=== PATIENT | female | born 1955 | race Caucasian/White ===

== ENCOUNTER 2016-09-19 20:29 | Emergency (ER) | payer SELFPAY ==
[~2016-09-19] VITALS: Ht 160 cm; Wt 109.1 kg
[2016-09-19 20:46] LABS: GLUCOSE,POINT OF CARE 159 MG/DL (70-110)
[2016-09-19] MEDS ORDERED: METF500T4 PO (20:46)
[2016-09-19] MEDS ORDERED: LISI-660 PO (20:46)
[2016-09-19] MEDS ORDERED: IBUPROFEN 600 MG TABLET PO ONE (21:45)
[2016-09-19 23:23] VITALS: BP 126/76
== END 2016-09-19 23:24 | disposition home or self-care (01) ==
LOC: EMS 20:30
DX: S83.92XA Sprain of unspecified site of left knee, initial encounter (principal); S20.212A Contusion of left front wall of thorax, initial encounter; E11.9 Type 2 diabetes mellitus without complications; I10 Essential (primary) hypertension; Z87.891 Personal history of nicotine dependence; V49.40XA Driver injured in collision with unspecified motor vehicles in traffic accident, initial encounter; Y93.89 Activity, other specified; Y92.89 Other specified places as the place of occurrence of the external cause; Y99.8 Other external cause status
CPT/HCPCS: 82962; 99284

== ENCOUNTER → 2018-01-21 | Outpatient (CLI) | payer MEDICAID ==
[~2018-01-21] VITALS: Ht 162.6 cm; Wt 96.1 kg
[~2018-01-21] MED LIST: ATOR10TA84 PO; ESCI10TA PO; HYDR25TA PO; LISI-660 PO; LISI-662 PO; METF-444 PO; METF500T6 PO; NORT25 PO; NPH,100V SQ; WARF2.5 PO
[2018-01-21 08:30] VITALS: BP 138/70
== END | disposition home or self-care (01) ==
LOC: HBOWC 08:10
PROVIDERS: ATTEND Podiatrist
DX: E11.621 Type 2 diabetes mellitus with foot ulcer (principal); L97.421 Non-pressure chronic ulcer of left heel and midfoot limited to breakdown of skin; I10 Essential (primary) hypertension; F17.210 Nicotine dependence, cigarettes, uncomplicated

== ENCOUNTER 2018-01-30 17:53 | Emergency (ER) | payer MEDICAID, OTHER ==
[~2018-01-30] VITALS: Ht 160 cm; Wt 93.2 kg
[~2018-01-30 17:53] MED LIST changes: -LISI-660 PO; -METF-444 PO; +METF-960 PO; -METF500T6 PO
[2018-01-30 19:35] VITALS: BP 118/64
== END 2018-01-30 20:30 | disposition home or self-care (01) ==
LOC: EMS 17:54
DX: E11.40 Type 2 diabetes mellitus with diabetic neuropathy, unspecified (principal); F17.210 Nicotine dependence, cigarettes, uncomplicated; I10 Essential (primary) hypertension; Z79.4 Long term (current) use of insulin; Z79.01 Long term (current) use of anticoagulants; Z79.899 Other long term (current) drug therapy
CPT/HCPCS: 99281